=== PATIENT | male | born 2000 | race Caucasian/White ===

== ENCOUNTER 2021-04-08 17:53 | Emergency (ER) | payer MEDICAID, SELFPAY ==
[2021-04-08 17:55] VITALS: BP 130/87; PULSE 78; RESP 18; TEMP 36.2; O2SAT 100; BMI 20.7
--- NOTE | 2021-04-08 18:53 | EKG12_ITS ---
Test Reason : ANXIETY Blood Pressure : / mmHG Vent. Rate : 059 BPM Atrial Rate : 059 BPM P-R Int : 130 ms QRS Dur : 102 ms QT Int : 370 ms P-R-T Axes : 054 089 078 degrees QTc Int : 366 ms Sinus bradycardia Otherwise normal ECG Confirmed by ZOILA CINTRON, SALVADOR ([id number]), business editor DORINDA COPE ([id number]) on 04/13/2021 10:12:58 AM Referred By: BB Confirmed By:SALVADOR CUMMINGS MD
--- NOTE | 2021-04-08 18:58 | EX.ED.VIS.PS ---
HPI HPI - Psych History of Present Illness Chief Complaint: Anxiety Informant: patient Narrative Narrative: Patient states he has been having anxiety and panic attacks since yesterday after having a discussion with his about finances and bills. He states that soon after hearing this discussion he began feeling very anxious, started hyperventilating and feeling like it was difficult to take a deep breath, followed by passing out. He has been feeling very anxious ever since. He states he is very nervous person. He has had significant anxiety for over a year. He states he has some type of fear of other people and can even leave his house without having significant anxiety over the possibility of things going badly wherever he goes. He denies any chest discomfort. He states he is extremely anxious right now since he is not at his home. He has a doctor's appointment for this in May but he has never seen a doctor about his anxiety yet. PFSH PFSH no medical history Home Medications hydroxyzine pamoate 50 mg PO TID PRN PRN #30 capsule 04/08/21 [Rx Last Taken Unknown] Allergy/AdvReac Type Severity Reaction Status Date / Time No Known Allergies Allergy Verified 04/08/21 17:57 Social History (Updated 04/08/21 @ 19:[address] Jose Akbar MD) Smoking Status: Current every day smoker tobacco type: cigarettes substance use type: does not use ROS ROS ED Constitutional Constitutional ED: Denies chills or fever(s) Eyes Eyes: Denies change in vision or diplopia ENT ENT ED: Denies rhinorrhea or sore throat Cardiovascular Cardiovascular: Denies chest pain or palpitations Respiratory/Chest Respiratory/Chest: Denies cough or dyspnea Gastrointestinal Gastrointestinal: Denies abdominal pain, diarrhea, nausea or vomiting Genitourinary Genitourinary ED: Denies dysuria or hematuria Musculoskeletal Musculoskeletal: Denies back pain or neck pain Integumentary Denies abscess or rash Neurologic Neurologic: Denies headache(s), paresthesias or weakness Psychiatric Psychiatric: Reports anxiety; Denies suicidal thoughts EXAM Physical Exam Const Vital Signs: 04/08/21 17:55 Temperature 97.1 F L Temperature Source Temporal Pulse Rate 78 Respiratory Rate 18 Blood Pressure 130/87 H Blood Pressure Mean 101 Pulse Ox 100 Oxygen Delivery Method Room Air Positive well nourished and well developed General Appearance ED: well developed and NAD HEENT Reports moist mucous membranes normocephalic and atraumatic Eyes PERRL and EOMs intact bilaterally Neck full ROM and supple Resp normal respiratory effort and clear to auscultation bilaterally Cardio regular rate, regular rhythm and no murmurs Rate: Negative for tachycardic GI non-tender and non-distended Auscultation: normoactive bowel sounds Palpation: soft Back/Spine no CVA tenderness General Back: other FROM Extremity normal to inspection General Extremety ED: Negative for edema, pulses abnormal or tenderness General Extremity: Negative for edema or pulses abnormal Neuro oriented x3, CN's II-XII intact bilaterally and no sensory deficits noted Sensorium / Orientation: awake and alert Motor Exam: strength 5/5 throughout Psych mental status grossly normal, thought process normal, cooperative, speech normal, activity/motor behavior normal, denies hallucinations, denies homicidal ideation and denies suicidal ideation Psych Narrative: Tremulous, very anxious. Skin no rashes or lesions noted and no wounds MDM MDM MDM Narrative Medical decision making narrative: EKG and vital signs are normal. Patient is treated with Vistaril for his anxiety and given a prescription, advised to follow-up as scheduled or sooner if able. EKG Initial EKG: Attestation: I personally reviewed and interpreted this EKG as follows: Interpretation: Sinus Rhythm and No Acute Injury Pattern Comments: Normal EKG Discharge Plan Triage Chief Complaint: Anxiety ED Provider: Jose Akbar Dx/Rx/DC Orders Clinical Impression: Anxiety, Syncope, psychogenic Instructions: ED Anxiety Reaction Prescriptions: New hydroxyzine pamoate [hydroxyzine pamoate] 25 MG capsule 50 mg PO TID PRN PRN (Reason: Anxiety) Qty: 30 RF: 0 Primary Care Provider: Care Physician,No Primary Referrals: Doctor,Your [STAFF PHYSICIAN] - Keep Ced[facility] appointment (Or sooner if able) Disposition Disposition: Home, Self Care
[2021-04-08] MEDS: hydrOXYzine PAM 25 MG Capsule 75 MG PO (19:10)
== END 2021-04-08 20:18 | disposition home or self-care (01) ==
PROVIDERS: Emergency Provider Emergency Medicine
DX: F41.9 Anxiety disorder, unspecified (principal); R55 Syncope and collapse; F17.210 Nicotine dependence, cigarettes, uncomplicated; Z79.899 Other long term (current) drug therapy
CPT/HCPCS: 93005; 99283